=== PATIENT | female | born 1985 | race American Indian/Alaskan Native ===

== ENCOUNTER 2017-01-21 09:35 | Emergency (ER) | payer MEDICAID ==
[2017-01-21 09:57] VITALS: BP 127/88
[2017-01-21] MEDS ORDERED: Lidocaine 4% Top Soln 4 ML LTA Syringe TOP ONE (10:22)
[2017-01-21] MEDS ORDERED: Bacitracin Oint 1 GM U/D Packet TOP ONE (10:27)
--- NOTE | 2017-01-21 10:30 | EDM.PDOC ---
ED HPI ENT - General Chief Complaint: ENT Problem Stated Complaint: SOMETHING IN RIGHT EAR, TONGUE ISSUE Time Seen by Provider: 01/21/17 10:24 Source: Reports: Patient History Limitations: Reports: No limitations - History of Present Illness INITIAL COMMENTS - FREE TEXT/NARRATIVE: pt got some nail harder in her mouth and it is burning, She has a bruised left hand which is uncomfortable. She has a painful rt ear. She thinks she has something down in the rt ear canal. Timing/Duration: Reports: Day(s):, Getting worse Location: Reports: right Ear, mouth Associated symptoms: Reports: denies other symptoms - Related Data Allergies/ADRs: Allergies Allergy/AdvReac Type Severity Reaction Status Date / Time Penicillins Allergy Delusions Verified 01/21/17 10:02 Home Meds: Home Meds Gabapentin [Gabapentin] 1,200 mg PO QID 01/21/17 [History] traZODone 1 tab PO BEDTIME 01/21/17 [History] Past Medical History Gastrointestinal History: Reports: Other (see below) Other Gastrointestinal History: chron's Genitourinary History: Reports: Other (see below) Other Genitourinary History: mass on kidney 2 months ago (from infection). Musculoskeletal History: Reports: Fracture, Fibromyalgia Neurological History: Reports: Headaches, chronic Psychiatric History: Reports: Depression, OCD - Past Surgical History GI Surgical History: Reports: Appendectomy, Colon Social & Family History - Tobacco Use Smoking Status *Q: Current Status Unknown - Recreational Drug Use Recreational Drug Use: No ED ROS ENT - Review of Systems Review Of Systems: See Below Constitutional: Reports: no symptoms HEENT: Reports: Other (Pt has a tender mouth from getting nail harder in the mouth. She also has a painful rt ear. ) Cardiovascular: Reports: Dyspnea on exertion Endocrine: Reports: no symptoms GI/Abdominal: Reports: Constipation : Reports: no symptoms Musculoskeletal: Reports: no symptoms Skin: Reports: no symptoms ED EXAM, ENT - Physical Exam Exam: See Below Text/Narrative:: pt arrived with a bruised left hand and she feels like she has something in her rt ear canal. She got some nail hardner in the mouth. She now has burning in the mouth. Exam Limited By: No limitations General Appearance: alert, anxious, other (agitation) Ears: other ( left drum is normal, The rt drum is red and inflamed. she has a flake of wax in the canal that the pt is seeing. ) Nose: normal inspection Mouth/Throat: Other ( There is no visable alba in the mouth. It wwas irrigated with lidocaine and bacatracin was used on the lips. ) Neck: normal inspection Respiratory/Chest: no respiratory distress Cardiovascular: regular rate, rhythm GI/Abdominal: soft, non tender Rectal (Female) Exam: Deferred Back: normal inspection Extremities: normal inspection Course - Vital Signs Last Recorded V/S: Last Vital Signs Temp 36.8 C 01/21/17 09:59 Pulse 110 H 01/21/17 09:59 Resp 20 01/21/17 09:59 BP 127/88 01/21/17 09:59 Pulse Ox 99 01/21/17 09:59 - Orders/Labs/Meds Orders: Active Orders 24 hr Category Date Time Status Hand Comp Min 3V Lt [CR] Stat Exams 01/21/17 10:20 Ordered Lidocaine 2% [Xylocaine 2% Viscous] Med 01/21/17 10:45 Once 15 ml PO ONETIME ONE Medication Orders Lidocaine HCl (Xylocaine 2% Viscous) 15 ml PO ONETIME ONE Stop: 01/21/17 10:46 Meds: Medications Generic Name Dose Route Start Last Admin Trade Name Freq PRN Reason Stop Dose Admin Lidocaine HCl 15 ml 01/21/17 10:45 Xylocaine 2% Viscous PO 01/21/17 10:46 ONETIME ONE Discontinued Medications Generic Name Dose Route Start Last Admin Trade Name Freq PRN Reason Stop Dose Admin Bacitracin 1 dose 01/21/17 10:27 Bacitracin Oint 1 Gm TOP 01/21/17 10:28 ONETIME ONE - Re-Assessments/Exams Free Text/Narrative Re-Assessment/Exam: 01/21/17 10:50 pt arrived with irritation in her mouth and a rt sided ear infection Departure - Departure Time of Disposition: 10:52 Disposition: Home, Self-Care 01 Condition: fair Clinical Impression: Right middle ear infection, Contusion of left hand Forms: ED Department Discharge Care Plan Goals: keflex 500mg tid for 10 days, spray mouth and throat with chloseptic, tylenol 3 1 tab q6h prn for pain #6 - My Orders Last 24 Hours: My Active Orders 01/21/17 10:20 Hand Comp Min 3V Lt [CR] Stat 01/21/17 10:45 Lidocaine 2% [Xylocaine 2% Viscous] 15 ml PO ONETIME ONE - Assessment/Plan Last 24 Hours: My Active Orders 01/21/17 10:20 Hand Comp Min 3V Lt [CR] Stat 01/21/17 10:45 Lidocaine 2% [Xylocaine 2% Viscous] 15 ml PO ONETIME ONE
[2017-01-21] MEDS ORDERED: Lidocaine 2% Viscous Solution 15 ML Cup PO ONE (10:45)
--- NOTE | 2017-01-22 09:20 | CR ---
Hand Comp Min 3V Lt INDICATION: bruised left hand. FINDINGS: Negative left hand.
== END 2017-01-21 11:09 | disposition home or self-care (01) ==
LOC: JP.ED 09:35
DX: H66.91 Otitis media, unspecified, right ear (principal); S60.222A Contusion of left hand, initial encounter; Z88.0 Allergy status to penicillin; Z90.49 Acquired absence of other specified parts of digestive tract
CPT/HCPCS: 73130; 99284; A9270

== ENCOUNTER 2018-01-05 20:52 | Emergency (ER) | payer MEDICAID ==
[2018-01-05] MEDS ORDERED: Ketorolac 60 MG/2 ML SDV IM ONE (21:42)
[2018-01-05 21:45] VITALS: BP 126/88
--- NOTE | 2018-01-05 21:48 | EDM.PDOC ---
ED HPI GENERAL MEDICAL PROBLEM - General Chief Complaint: Upper Extremity Injury/Pain Stated Complaint: RIGHT ARM SHOULDER PAIN Time Seen by Provider: 01/05/18 21:35 Source of Information: Reports: Patient, Old Records, RN History Limitations: Reports: No Limitations - History of Present Illness INITIAL COMMENTS - FREE TEXT/NARRATIVE: 32 yo female had surgery on her R shoulder in late October in [place]. 3 days ago she fell and aggravated her pain. Since the fall she first saw her primary in [place] and later an orthopedic provider in [place]. Neither offered her anything for pain relief she says and she says she was too distracted to ask for anything. Says she is not taking anything for pain at this time. Records indicate she has had multiple Rx's for narcotics recently. 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 Musculoskeletal History: Reports: Fracture, Fibromyalgia Neurological History: Reports: Headaches, Chronic Psychiatric History: Reports: Depression, OCD - Past Surgical History GI Surgical History: Reports: Appendectomy, Colostomy Female Surgical History: Reports: Tubal Ligation Musculoskeletal Surgical History: Reports: Shoulder Surgery Social & Family History - Tobacco Use Smoking Status *Q: Current Some Day Smoker Years of Tobacco use: 10 Packs/Tins Daily: 0.1 - Recreational Drug Use Recreational Drug Use: No Review of Systems - Review of Systems Review Of Systems: See Below Constitutional: Reports: No Symptoms Musculoskeletal: Reports: Shoulder Pain (Right) Skin: Reports: No Symptoms Neurological: Reports: No Symptoms ED EXAM, GENERAL - Physical Exam Exam: See Below Exam Limited By: No Limitations General Appearance: Alert, WD/WN, No Apparent Distress Extremities: Limited Range of Motion (apparently due to pain in the shoulder. ) . No: Normal Range of Motion, Pedal Edema, Increased Warmth, Redness Neurological: Alert, Oriented, CN II-XII Intact, Normal Cognition, No Motor/ Sensory Deficits Psychiatric: Normal Affect, Normal Mood Skin Exam: Warm, Dry, Intact, Normal Color, No Rash Lymphatic: No Adenopathy Course - Orders/Labs/Meds Orders: Active Orders 24 hr Category Date Time Status Ketorolac [Toradol] Med 01/05/18 21:42 Once 60 mg IM ONETIME ONE Departure - Departure Time of Disposition: 22:00 Disposition: Home, Self-Care 01 Condition: Good Clinical Impression: Shoulder pain Qualifiers: Chronicity: unspecified Laterality: right Qualified Code(s): M25.511 - Pain in right shoulder - Discharge Information Referrals: PCP,None [Primary Care Provider] - - My Orders Last 24 Hours: My Active Orders 01/05/18 21:42 Ketorolac [Toradol] 60 mg IM ONETIME ONE - Assessment/Plan Last 24 Hours: My Active Orders 01/05/18 21:42 Ketorolac [Toradol] 60 mg IM ONETIME ONE
== END 2018-01-05 22:14 | disposition home or self-care (01) ==
LOC: JP.ED 20:52
DX: M25.511 Pain in right shoulder (principal); Z88.0 Allergy status to penicillin; F17.210 Nicotine dependence, cigarettes, uncomplicated; F42.9 Obsessive-compulsive disorder, unspecified; Z90.49 Acquired absence of other specified parts of digestive tract; Z79.899 Other long term (current) drug therapy
CPT/HCPCS: 96372; 99283; J1885

== ENCOUNTER 2021-01-23 22:06 | Emergency (ER) | payer MEDICAID ==
[2021-01-23] MEDS ORDERED: Acetaminophen 325 MG Tab PO PRN (22:22)
[2021-01-23] MEDS ORDERED: Sodium Chloride 0.9% 10 ML Syringe FLUSH PRN (22:23)
[2021-01-23] MEDS ORDERED: Sodium Chloride 0.9% 1,000 ML IV ONE (22:23)
[2021-01-23] MEDS ORDERED: Ondansetron 4 MG/2 ML SDV IVPUSH ONE (22:24)
== END 2021-01-23 22:30 | disposition left against medical advice (07) ==
LOC: JP.ED 22:06
DX: R07.9 Chest pain, unspecified (principal); Z53.21 Procedure and treatment not carried out due to patient leaving prior to being seen by health care provider

== ENCOUNTER 2023-02-24 11:44 | Emergency (ER) | payer MEDICAID ==
[2023-02-24 11:57] VITALS: BP 124/86; PULSE 72
[2023-02-24 12:23] LABS: BASOPHILS ABSOLUTE AUTO 0.05 K/uL (0.00-0.10); BASOPHILS PERCENT AUTO 0.5 % (0.1-1.3); EOSINOPHILS ABSOLUTE AUTO 0.15 K/uL (0.00-0.40); EOSINOPHILS PERCENT AUTO 1.5 % (0.0-5.4); HEMATOCRIT 42.4 % (34.3-46.0); HEMOGLOBIN 13.7 g/dL (11.2-15.5); IMMATURE GRAN ABSOLUTE AUTO 0.05 K/uL (0.00-0.23); IMMATURE GRAN PERCENT AUTO 0.5 % (0.0-0.7); LYMPHOCYTES ABSOLUTE AUTO 1.99 K/uL (0.8-3.3); LYMPHOCYTES PERCENT AUTO 19.6 % (11.4-47.7); MEAN CORPUSCULAR HEMOGLOBIN 29.4 pg (31.6-35.5); MEAN CORPUSCULAR HGB CONC 32.3 g/dL (31.6-35.5); MONOCYTES ABSOLUTE AUTO 0.44 K/uL (0.20-0.90); MONOCYTES PERCENT AUTO 4.3 % (3.3-12.6); NEUTROPHILS ABSOLUTE AUTO 7.48 K/uL (1.0-7.6); NEUTROPHILS PERCENT AUTO 73.6 % (40.0-78.1); PLATELET COUNT,PLT 400 K/uL (130-375); RED BLOOD CELL COUNT 4.66 M/uL (3.77-5.24); WHITE BLOOD CELL COUNT,WBC 10.2 K/uL (3.2-11.0)
[2023-02-24 12:38] LABS: CALCIUM 8.7 mg/dL (8.5-10.1); CREATININE 0.7 mg/dL (0.6-1.0); POTASSIUM,K 4.3 mmol/L (3.6-5.2)
[2023-02-24 12:39] LABS: ANION GAP 12.3 mmol/L (5.0-14.0)
[2023-02-24 12:44] LABS: APPEARANCE,URINE CLEAR (CLEAR); BILIRUBIN,URINE NEGATIVE (NEGATIVE); COLOR,URINE YELLOW (YELLOW); GLUCOSE,URINE NEGATIVE (NEGATIVE); KETONES,URINE NEGATIVE (NEGATIVE); LEUKOCYTE ESTERASE,URINE TRACE (NEGATIVE); NITRITE,URINE NEGATIVE (NEGATIVE); OCCULT BLOOD,URINE NEGATIVE (NEGATIVE); PROTEIN,URINE NEGATIVE (NEGATIVE); UROBILINOGEN,URINE 0.2 EU/dL (0.2-1.0)
[2023-02-24 12:50] LABS: AMORPHOUS SEDIMENT,URINE NOT SEEN; BACTERIA,URINE FEW; EPITHELIAL CELLS,URINE FEW; MUCUS,URINE NOT SEEN; RBC,URINE 0-5 (0-5); WBC,URINE 0-5 (0-5)
[2023-02-24] MEDS ORDERED: Sulfamethoxazole/Trimethoprim 800-160 MG Tab PO ONE (12:55)
[2023-02-24] MEDS ORDERED: Acetaminophen 500 MG Tab PO ONE (13:14)
== END 2023-02-24 13:54 ==
LOC: JP.ED 11:44
DX: A49.02 Methicillin resistant Staphylococcus aureus infection, unspecified site (principal); L03.116 Cellulitis of left lower limb; L02.416 Cutaneous abscess of left lower limb; R10.9 Unspecified abdominal pain; Z88.0 Allergy status to penicillin
CPT/HCPCS: 36415; 80048; 81001; 85025; 87070; 87077; 87186; 87205; 99283; A9270